=== PATIENT | female | born 1960 | race Hispanic/Latino ===

== ENCOUNTER 2017-04-13 07:19 | Inpatient (IN) | payer OTHER ==
[2017-04-13] MEDS ORDERED: HYDRALAZINE HCL 20 MG/ML VIAL IV STA (07:28)
[2017-04-13] MEDS ORDERED: SODIUM CHLORIDE 0.9% 1000ML 1,000 ML IV STA (07:28)
[2017-04-13] MEDS ORDERED: ONDANSETRON HCL INJ 2 MG/ML VIAL IV STA (07:28)
[2017-04-13] MEDS ORDERED: MORPHINE SULFATE 5 MG/ML VIAL IV ONE (07:30)
[2017-04-13] MEDS ORDERED: HYDROMORPHONE 1MG/1ML INJ IV STA (07:53)
[2017-04-13 08:41] LABS: BASOPHILS % 0.5 % (0.0-1.0); EOSINOPHILS % 0.5 % (0.0-6.0); HEMATOCRIT 42.5 % (34.2-44.1); HEMOGLOBIN 13.8 g/dL (12.0-16.0); LYMPHOCYTES # (AUTO) 1.8 (1.0-3.2); LYMPHOCYTES % 31.2 % (18.0-39.1); MEAN CORPUSCULAR HEMOGLOBIN 29.9 pg (28-32); MEAN CORPUSCULAR HGB CONC 32.5 g/dL (31-35); MONOCYTES # (AUTO) 0.4 (0.2-0.8); MONOCYTES % 6.8 % (4.4-11.3); NEUTROPHILS # (AUTO) 3.6 (2.1-6.9); NEUTROPHILS % 60.8 % (38.7-80.0); PLATELET COUNT 251 x10e3/uL (140-360); RED BLOOD COUNT 4.62 x10e6/uL (3.6-5.1); RED CELL DISTRIBUTION WIDTH 12.4 % (11.7-14.4)
[2017-04-13 08:53] LABS: INR 0.88; PROTHROMBIN TIME 12.4 seconds (11.9-14.5)
[2017-04-13 08:54] LABS: PARTIAL THROMBOPLASTIN TIME 31.2 seconds (23.8-35.5)
[2017-04-13 08:59] LABS: ALANINE AMINOTRANSFERASE 14 IU/L (0-55); ALBUMIN 4.2 g/dL (3.5-5.0); ALBUMIN/GLOBULIN RATIO 1.1 (0.8-2.0); ALKALINE PHOSPHATASE 115 IU/L (40-150); ANION GAP 10.5 mmol/L (8-16); BLOOD UREA NITROGEN 18 mg/dL (7-26); BUN/CREATININE RATIO 24 (6-25); CALCIUM 9.2 mg/dL (8.4-10.2); CARBON DIOXIDE 28 mmol/L (22-29); CHLORIDE 102 mmol/L (98-107); CREATINE KINASE 160 IU/L (29-168); CREATININE, SERUM 0.75 mg/dL (0.57-1.11); EST GLOMERULAR FILTRATION RATE > 60 ML/MIN (60-); GLUCOSE 147 mg/dL (74-118); LIPASE 27 U/L (8-78); POTASSIUM 3.5 mmol/L (3.5-5.1); SODIUM 137 mmol/L (136-145)
[2017-04-13 09:06] LABS: TROPONIN I 0.132 ng/mL (0-0.300)
[2017-04-13] MEDS ORDERED: ASPIRIN 325 MG TAB EC PO STA (09:14)
[2017-04-13] MEDS ORDERED: IOPAMIDOL 370 MG/ML 200 ML INFUS..BTL INJ ONE (09:43)
[2017-04-13] MEDS ORDERED: SODIUM CHLORIDE 0.9% 50ML 50 ML ONE (09:43)
[2017-04-13 09:51] LABS: BILIRUBIN,URINE NEGATIVE (NEGATIVE); CLARITY,URINE CLEAR (CLEAR); COLOR,URINE YELLOW (YELLOW); KETONES,URINE NEGATIVE (NEGATIVE); LEUKOCYTE ESTERASE ,URINE NEGATIVE (NEGATIVE); NITRITE,URINE NEGATIVE (NEGATIVE); PROTEIN,URINE DIPSTICK NEGATIVE (NEGATIVE); URINE UROBILINOGEN 0.2 mg/dL (0.2 - 1)
--- NOTE | 2017-04-13 09:54 | Diagnostic Imaging Report ---
EXAMINATION: CT of the abdomen and pelvis with contrast. TECHNIQUE: Helical CT images of the abdomen and pelvis were performed from the lung bases to the lesser trochanters after the intravenous administration of 100 cc of Isovue-370 and the oral administration of none. Coronal and sagittal reformatted images were obtained. COMPARISON: None. CLINICAL HISTORY:Abdominal and back pain DISCUSSION: ABDOMEN/PELVIS: LOWER THORAX:Unremarkable. HEPATOBILIARY: No focal hepatic lesions. No intra-or extrahepatic biliary ductal dilation. The gallbladder is normal. SPLEEN: No splenomegaly. PANCREAS: No focal masses or ductal dilatation. ADRENALS: No adrenal nodules. KIDNEYS/URETERS: No hydronephrosis, stones, or solid mass lesions. PELVIC ORGANS/BLADDER: The bladder is normal. PERITONEUM/RETROPERITONEUM: No free air or fluid. LYMPH NODES: No intra-abdominal, retroperitoneal, pelvic or inguinal lymphadenopathy. VESSELS: The celiac trunk,superior and inferior mesenteric and bilateral renal arteries are patent The portal, superior mesenteric and splenic veins are patent. GI TRACT: No distention or wall thickening. BONES AND SOFT TISSUE: No bony destructive lesions. No soft tissue abnormalities. IMPRESSION: No acute CT finding. Signed by: Dr. Carlos A Almonte M.D. on 04/13/2017 9:50 AM
[2017-04-13 10:11] LABS: EPITHELIAL CELLS,URINE FEW /LPF; RBC,URINE 0-5 /HPF (0-5); WBC,URINE (MAN) 0-5 /HPF (0-5)
[2017-04-13] MEDS ORDERED: SODIUM CHLORIDE FLUSH 10 ML SYR INJ PRN (10:15)
[2017-04-13] MEDS ORDERED: ONDANSETRON HCL INJ 2 MG/ML VIAL IV PRN (10:15)
[2017-04-13] MEDS ORDERED: MORPHINE SULFATE 2 MG/ML SYR IV PRN (10:15)
[2017-04-13] MEDS ORDERED: DEXTROSE 50% SYRINGE 50 ML IV PRN (10:30)
[2017-04-13] MEDS: ENOXAPARIN INJ 80 MG/0.8 ML SYR SC SCH ×2 (10:59→23:52)
--- NOTE | 2017-04-13 11:38 | Diagnostic Imaging Report ---
Examination: Single AP view of the chest. COMPARISON: None. INDICATION: STEMI DISCUSSION: Lines/tubes: None. Lungs: The lungs are well inflated and clear. There is no evidence of pneumonia or pulmonary edema. Pleura: There is no pleural effusion or pneumothorax. Heart and mediastinum: The heart and the mediastinum are unremarkable. Bones and soft tissues: No acute bony abnormalities. IMPRESSION: 1. No acute cardiopulmonary abnormalities. Signed by: Dr. Carlos A Almonte M.D. on 04/13/2017 11:35 AM
[2017-04-13] MEDS: INSULIN REGULAR, HUMAN 100 UNIT/1 ML 3ML VIAL SQ SCH ×3 (12:04→21:36)
--- NOTE | 2017-04-13 15:31 | Consultation ---
DATE OF CONSULTATION: April 13, 2017 CARDIOLOGY CONSULTATION REQUESTING PHYSICIAN: Dr. Rogers/Dr. Gee REASON FOR CONSULTATION: Borderline troponin. HISTORY OF PRESENT ILLNESS: Ms. Pritchard is a 56-year-old lady with past medical history as listed below who presented with complaints of abdominal pain radiating to her back. It apparently was severe, started yesterday. She went on to have a CAT scan of her abdomen, which was negative for any aneurysm or dissection. She was noted to have borderline troponins, so we were consulted. Patient denies any chest pain. No shortness of breath or diaphoresis. She has some nausea and loss of appetite, but no vomiting or diarrhea. Patient speaks mostly [place], and most of the history is obtained through an mat roller. REVIEW OF SYSTEMS CONSTITUTIONAL: Has fatigue and weakness. HEENT: No headache, blurry vision, seizures or syncope. CARDIOVASCULAR: No chest pain, dyspnea, orthopnea, PND. RESPIRATORY: No cough, fever or expectoration. GI: Has abdominal pain. No vomiting or diarrhea. : No dysuria, frequency, incontinence. ALLERGIES: NO KNOWN DRUG ALLERGIES. MEDICATIONS: See list. PAST MEDICAL HISTORY: History of hypertension. SOCIAL HISTORY: Does not smoke. The patient drinks occasionally. FAMILY HISTORY: Noncontributory. PHYSICAL EXAMINATION VITALS: Heart rate is 67, blood pressure is 153/77, respiratory rate 18. GENERAL: Moderately built and nourished lady, alert and oriented, not in any obvious distress. HEENT: Atraumatic. NECK: No JVD, bruit, thyromegaly or lymphadenopathy. CARDIOVASCULAR: The 1st and 2nd heart sounds hard. No murmurs, rubs or gallops appreciated. CHEST: Clear to auscultation. ABDOMEN: Soft, nontender. EXTREMITIES: No edema. LABS: WBC is 5.9, hemoglobin 13.8, hematocrit 42.5, platelets 251. Sodium 137, potassium 3.5, chloride 102, bicarb 28, BUN 18, creatinine 0.7. LFTs are normal. Troponin 0.132. EKG shows sinus rhythm at 72 beats per minute, normal axis, normal intervals, nonspecific ST-T changes. IMPRESSION 1. Abdominal pain. 2. Hypertension. PLAN 1. Patient had CAT scan of her abdomen which showed no acute changes. 2. Continue to follow cardiac enzymes. 3. Get echocardiogram to assess LV function and valvular function. 4. Further cardiac workup depending on clinical course. I discussed my impression and plan of management with the patient through an mat roller, and she understands. As always, I appreciate and thank you very much for your referrals. KAVITHA CHOW MD Job#: [id number]
[2017-04-13 17:13] LABS: CREATINE KINASE MB 2.2 ng/mL (0.00-5.00); TROPONIN I 0.109 ng/mL (0-0.300)
[2017-04-14 01:04] LABS: CREATINE KINASE MB 1.8 ng/mL (0.00-5.00); TROPONIN I 0.113 ng/mL (0-0.300)
[2017-04-14 06:22] LABS: BASOPHILS % 0.6 % (0.0-1.0); EOSINOPHILS # (AUTO) 0.1 (0.0-0.4); EOSINOPHILS % 0.9 % (0.0-6.0); HEMATOCRIT 38.5 % (34.2-44.1); HEMOGLOBIN 12.9 g/dL (12.0-16.0); LYMPHOCYTES % 37.4 % (18.0-39.1); MEAN CORPUSCULAR HGB CONC 33.5 g/dL (31-35); MEAN CORPUSCULAR VOLUME 89.5 fL (81-99); MONOCYTES # (AUTO) 0.4 (0.2-0.8); MONOCYTES % 7.7 % (4.4-11.3); NEUTROPHILS # (AUTO) 2.9 (2.1-6.9); NEUTROPHILS % 53.2 % (38.7-80.0); PLATELET COUNT 239 x10e3/uL (140-360); RED CELL DISTRIBUTION WIDTH 12.5 % (11.7-14.4)
--- NOTE | 2017-04-14 06:25 | History and Physical ---
REASON FOR ADMISSION: Chest pain, rule out [place]. HISTORY OF PRESENT ILLNESS: Patient is a 56-year-old lady who presented with chest pain, substernal, left-sided and none now, who is being admitted for chest pain, rule out [place]. PAST MEDICAL HISTORY: Significant for diabetes, hypertension, hyperlipidemia. MEDICATIONS: See MAR. ALLERGIES: NONE. SOCIAL: Lives at home with her . FAMILY HISTORY: Hypertension. PHYSICAL EXAMINATION VITALS: 98.6, pulse 74, blood pressure 146/72, sats 98% on room air. GENERAL: No apparent distress. NECK: Supple. CARDIOVASCULAR: Regular rate and rhythm. LUNGS: Clear to auscultation bilaterally. ABDOMEN: Good bowel sounds. Soft and nontender. EXTREMITIES: No clubbing or cyanosis. NEUROLOGICAL: Nonfocal. ASSESSMENT AND PLAN 1. Chest pain: Will rule out myocardial infarction. Will consult Dr. Degroot from cardiology. 2. Diabetes: Continue with current care and monitoring. 3. Hypertension: Continue with current care and monitoring the blood pressure. 4. Hyperlipidemia: Continue to monitor. Please see hospital chart for full details. Job#: [id number] ND
[2017-04-14 06:37] LABS: ANION GAP 11.5 mmol/L (8-16); BLOOD UREA NITROGEN 11 mg/dL (7-26); BUN/CREATININE RATIO 15 (6-25); CALCIUM 8.9 mg/dL (8.4-10.2); CARBON DIOXIDE 26 mmol/L (22-29); CHLORIDE 103 mmol/L (98-107); CREATININE, SERUM 0.71 mg/dL (0.57-1.11); EST GLOMERULAR FILTRATION RATE > 60 ML/MIN (60-); GLUCOSE 114 mg/dL (74-118); POTASSIUM 3.5 mmol/L (3.5-5.1); SODIUM 137 mmol/L (136-145)
[2017-04-14 07:21] LABS: CHOL/HDL RATIO 2.9 (3.0-3.6)
[2017-04-14] MEDS: INSULIN REGULAR, HUMAN 100 UNIT/1 ML 3ML VIAL SQ SCH ×2 (07:57→11:38)
[2017-04-14] MEDS ORDERED: ASPIRIN 325 MG TAB EC PO SCH (09:00)
[2017-04-14] MEDS ORDERED: LISINOPRIL 10 MG TAB PO SCH (09:00)
[2017-04-14] MEDS ORDERED: ACETAMINOPHEN 325 MG TAB PO PRN (10:45)
[2017-04-14] MEDS: ENOXAPARIN INJ 80 MG/0.8 ML SYR SC SCH (10:48)
[2017-04-14] MEDS ORDERED: ACETAMINOPHEN 325 MG TAB ONE (10:49)
[2017-04-14 13:37] VITALS: BP 112/74
--- OUTSIDE RECORDS SUMMARY | 2017-04-24 14:48 | XMS REPORT ---
Author [facility] Address Unknown Phone Unavailable Care Team Providers Care Hair Boiler Name Role Phone ANNA VILA Unavailable Unavailable Problems This patient has no known problems. Allergies, Adverse Reactions, Alerts This patient has no known allergies or adverse reactions. Medications This patient has no known medications. Results Test Description Test Time Test Comments Text Results Atomic Results Result Comments CHEST SINGLE (PORTABLE) [place] [id number] Patient Name: MARGARETH HERNANDEZ MR #: [id number] : 1960 Age/Sex: 56/F Req #: [id number] Adm Physician: ANNA VILA MD Ordered by: AMY KEMP MD Report #: [id number] Location: [facility] Room/Bed: [place] [address] Procedure: [id number] DX/CHEST SINGLE (PORTABLE) Exam Date: 04/13/17 Exam Time: 1105 REPORT STATUS: Signed Examination: Single AP view of the chest. COMPARISON: None. INDICATION: STEMI DISCUSSION: Lines/tubes: None. Lungs: The lungs are well inflated and clear. There is no evidence of pneumonia or pulmonary edema. Pleura: There is no pleural effusion or pneumothorax. Heart and mediastinum: The heart and the mediastinum are unremarkable. Bones and soft tissues: No acute bony abnormalities. IMPRESSION: 1. No acute cardiopulmonary abnormalities. Signed by: Dr. Deidre Mariee M.D. on 04/13/2017 11:35 AM Dictated By: DEIDRE MARIEE MD 1135 Transcribed By: LATISHA on 04/13/17 1135 COPY TO: AMY KEMP MD CT ABDOMEN/PELVIS W [place] [id number] Patient Name: MARGARETH HERNANDEZ MR #: [id number] : 1960 Age/Sex: 56/F Req #: [id number] Adm Physician: Ordered by: AMY KEMP MD Report #: [id number] Location: ER Room/Bed: Procedure: [id number] CT/CT ABDOMEN/PELVIS W Exam Date: 04/13/17 Exam Time: 918 REPORT STATUS: Signed EXAMINATION: CT of the abdomen and pelvis with contrast. TECHNIQUE: Helical CT images of the abdomen and pelvis were performed from the lung bases to the lesser trochanters after the intravenous administration of 100 cc of Isovue-370 and the oral administration of none. Coronal and sagittal reformatted images were obtained. COMPARISON: None. CLINICAL HISTORY:Abdominal and back pain DISCUSSION: ABDOMEN/PELVIS: LOWER THORAX:Unremarkable. HEPATOBILIARY: No focal hepatic lesions. No intra-or extrahepatic biliary ductal dilation. The gallbladder is normal. SPLEEN: No splenomegaly. PANCREAS: No focal masses or ductal dilatation. ADRENALS: No adrenal nodules. KIDNEYS/URETERS: No hydronephrosis, stones, or solid mass lesions. PELVIC ORGANS/BLADDER: The bladder is normal. PERITONEUM/RETROPERITONEUM: No free air or fluid. LYMPH NODES: No intra- abdominal, retroperitoneal, pelvic or inguinal lymphadenopathy. VESSELS: The celiac trunk,superior and inferior mesenteric and bilateral renal arteries are patent The portal, superior mesenteric and splenic veins are patent. GI TRACT: No distention or wall thickening. BONES AND SOFT TISSUE: No bony destructive lesions. No soft tissue abnormalities. IMPRESSION: No acute CT finding. Signed by: Dr. Deidre Mariee M.D. on 04/13/2017 9:50 AM Dictated By: DEIDRE MARIEE MD 9 Transcribed By: LATISHA on 949 COPY TO: AMY KEMP MD
== END 2017-04-14 13:56 | disposition home or self-care (01) | DRG 313 ==
LOC: ER 07:19 → ERHOLD 10:17 → UNDOADMIN 10:24
PROVIDERS: ADMIT Internal Medicine; ATTEND Internal Medicine
DX: R07.9 Chest pain, unspecified (principal); I10 Essential (primary) hypertension; R10.31 Right lower quadrant pain; E11.9 Type 2 diabetes mellitus without complications; E78.5 Hyperlipidemia, unspecified
CPT/HCPCS: 36415; 71045; 74177; 80048; 80053; 80061; 81001; 82550; 82553; 82948; 83690; 84484; 85025; 85610; 85730; 87086; 93005; 93306; 99284; J0360; J1650; J2270; J2405; J7030; Q9967